=== PATIENT | male | born 1985 | race Caucasian/White ===

== ENCOUNTER 2017-06-01 04:52 | Emergency (ER) | payer SELFPAY ==
[2017-06-01] MEDS ORDERED: IPRATROPIUM/ALBUTEROL 3 ML DEYVIAL IH ONE (04:58)
[2017-06-01] MEDS ORDERED: IPRATROPIUM/ALBUTEROL 3 ML DEYVIAL ONE (04:58)
[2017-06-01 05:05] VITALS: BP 127/94; TEMP 97.3
--- NOTE | 2017-06-01 05:12 | EDPHY ---
H & P HPI/ROS: HPI The patient presents with shortness of breath which has been present intermittently for the last 1 month though became worse this morning. He has a history of asthma, last month he was treated with a prednisone burst with improvement in his symptoms, however over the last few weeks he has been getting worse. He reports shortness of breath with exertion and while lying in bed at night. He has not had a cough. He has not had a fever. He denies any sick contacts. REVIEW OF SYSTEMS Constitutional: No fever, no chills. Cardiovascular: No chest pain, no palpitations. Respiratory: No cough, positive for shortness of breath. Gastrointestinal: No abdominal pain, no vomiting. Genitourinary: No hematuria. Musculoskeletal: No back pain. Skin: No rashes. Neurological: No headache. PMHx: Asthma since childhood Soc Hx: Lives with roommates PHYSICAL General Appearance: Alert, no distress ENT, Mouth: Mucous membranes moist Respiratory: Breathing comfortably, there are mild wheezes throughout all lung carlin Neurological: A&O, moves all extremities Skin: Warm and dry, no rashes Psychiatric: Patient is oriented X 3, there is no agitation Source: Patient Exam Limitations: No limitations - Medical/Surgical History Hx Asthma: Yes Hx Chronic Respiratory Disease: No Hx Diabetes: No Hx Cardiac Disease: No Hx Renal Disease: No Hx Cirrhosis: No Hx Alcoholism: No Hx HIV/AIDS: No Hx Splenectomy or Spleen Trauma: No Other PMH: Asthma, gastric ulcer, left elbow, marijuana use, pancreatitis - Social History Smoking Status: Light smoker Constitutional: Initial Vital Signs Temperature (C) 36.3 C 06/01/17 05:03 Heart Rate 110 H 06/01/17 05:03 Respiratory Rate 30 H 06/01/17 05:03 Blood Pressure 127/94 H 06/01/17 05:03 O2 Sat (%) 92 06/01/17 05:03 O2 Delivery Mode Room Air Allergies/Adverse Reactions: No Known Allergies Allergy (Unverified 11/07/15 00:55) Home Medications: Medication Instructions Recorded Albuterol 06/01/17 predniSONE [Prednisone] 40 mg PO DAILY 4 Days tablet 06/01/17 Medical Decision Making Differential Diagnosis: 32-year-old male with history of asthma presents with shortness of breath for the last several days which became worse this morning when he was trying to sleep. He is out of his albuterol inhaler. On exam, he is well-appearing, slightly tachypneic, wheezes are present, oxygen saturation is normal. Differential diagnosis includes asthma exacerbation or viral URI. In the emergency department, patient was given a DuoNeb with near complete resolution of his symptoms. Lungs were clear. He was issued albuterol with spacer and given a dose of prednisone. He will complete a prednisone burst. He unfortunately does not have insurance currently and cannot afford an inhaled corticosteroid, however I have explained this may help control his symptoms. I will refer him to [facility]. - Data Points Medications Given: Discontinued Medications Albuterol/Ipratropium (Duoneb) 3 ml IH EDNOW ONE Stop: 06/01/17 04:59 Last Admin: 06/01/17 05:03 Dose: 3 ml Departure - Departure Disposition: Home, Routine, Self-Care Clinical Impression: Exacerbation of asthma Qualifiers: Asthma severity: moderate Asthma persistence: unspecified Qualified Code(s): J45.901 - Unspecified asthma with (acute) exacerbation Condition: Good Instructions: Asthma (ED) Referrals: [facility],. [Clinic] - As per Instructions Prescriptions: predniSONE [Prednisone] 40 mg PO DAILY 4 Days tablet
[2017-06-01] MEDS ORDERED: ALBUTEROL INH PREPACK MDI TAKEHOME ONE (05:38)
[2017-06-01] MEDS ORDERED: predniSONE 20 MG TAB ONE (05:44)
[2017-06-01 06:10] VITALS: PULSE 82; RESP 18; O2SAT 93
[2017-06-01] MEDS ORDERED: predniSONE 20 MG TAB PO SCH (08:00)
== END 2017-06-01 06:00 | disposition home or self-care (01) ==
DX: J45.901 Unspecified asthma with (acute) exacerbation (principal); F17.200 Nicotine dependence, unspecified, uncomplicated
CPT/HCPCS: J7512

== ENCOUNTER 2017-09-21 20:49 | Emergency (ER) | payer BC, OTHER ==
[2017-09-21] MEDS ORDERED: IPRATROPIUM/ALBUTEROL 3 ML DEYVIAL ONE (20:58)
[2017-09-21] MEDS ORDERED: IPRATROPIUM/ALBUTEROL 3 ML DEYVIAL IH ONE (21:09)
[2017-09-21] MEDS ORDERED: ALBUTEROL INH PREPACK MDI TAKEHOME ONE (21:34)
--- NOTE | 2017-09-21 21:34 | EDPHY ---
H & P Time Seen by Provider: 09/21/17 21:09 HPI/ROS: CHIEF COMPLAINT: Difficulty breathing HISTORY OF PRESENT ILLNESS: 32-year-old male presents to the emergency department by private vehicle with acute asthma exacerbation. The patient has a known history of asthma and allergies. He ran out of his albuterol inhaler about 2 weeks ago. He has been told in the past that he should be on cortical steroids including Advair although he was never able to afford it. He has a scheduled appointment with an asthma and transformation specialist in 1 week. He presents today because he had acute exacerbation of his asthma when he was at work trying to carry a heavy generator. He developed difficulty breathing. He states he tried a number of things on his own, however this was without relief. No fevers or chills. No URI symptoms. No cough. No abdominal pain. No vomiting. No headache. REVIEW OF SYSTEMS: Constitutional: No fever, no chills. Eyes: No double or blurry vision. ENT: No sore throat. Respiratory: Shortness of breath. No cough. Cardiac: No chest pain. Gastrointestinal: No abdominal pain, vomiting or diarrhea. Genitourinary: No dysuria. Musculoskeletal: No neck or back pain. Skin: No rashes. Neurological: No headache. Past Medical/Surgical History: Asthma, allergies Social History: Single, works at [employer] Smoking Status: Former smoker Physical Exam: General Appearance: Alert, no distress. Afebrile. No respiratory distress. 95% on room air. Eyes: Pupils equal and round. Extraocular motions are all intact. ENT: Mouth: Mucous membranes moist. Respiratory: No wheezing, rhonchi, or rales, lungs are clear to auscultation. Cardiovascular: Regular rate and rhythm. Gastrointestinal: Abdomen is soft and nontender, no masses, no rebound or guarding, bowel sounds normal. Neurological: Alert and oriented x 3, cranial nerves II through XII grossly intact Skin: Warm and dry, no rashes. Musculoskeletal: Nontender to palpate along the cervical, thoracic or lumbar spine. Neck is supple. Extremities: Full range of motion and no peripheral edema. Psychiatric: Patient is oriented X 3, there is no agitation. Constitutional: Initial Vital Signs Temperature (C) 37.1 C 09/21/17 20:52 Heart Rate 123 H 09/21/17 20:52 Respiratory Rate 20 09/21/17 20:52 Blood Pressure 122/82 H 09/21/17 20:52 O2 Sat (%) 95 09/21/17 20:52 O2 Delivery Mode Room Air Allergies/Adverse Reactions: No Known Allergies Allergy (Verified 09/21/17 20:54) Home Medications: Medication Instructions Recorded Albuterol 06/01/17 Medical Decision Making ED Course/Re-evaluation: 32-year-old male presents to the emergency department with acute accident this aspiration. The patient was given DuoNeb prior to my examination and was feeling much better. He felt like his symptoms of shortness of breath had completely resolved. O2 saturation remained in the mid 90s. Patient will be treated with albuterol inhaler. He declined cortical steroids at this time since he is going to follow up with an asthma and transformation specialist next week. I think this is reasonable. I do not think oral steroids such as prednisone are indicated at this time as he had great improvement just even after 1 nebulizer. He had no residual wheezing on examination. I do not think chest x-rays indicated. I doubt pneumonia. I doubt PE. He improved after 1 nebulizer treatment. Differential Diagnosis: Including but not limited to asthma exacerbation, bronchitis, pneumonia, influenza, pulmonary embolism, viral upper respiratory infection, anxiety - Data Points Medications Given: Discontinued Medications Albuterol/Ipratropium (Duoneb) 3 ml IH EDNOW ONE Stop: 09/21/17 21:10 Last Admin: 09/21/17 21:20 Dose: 3 ml Departure - Departure Disposition: Home, Routine, Self-Care Clinical Impression: Exacerbation of asthma Qualifiers: Asthma severity: unspecified severity Asthma persistence: unspecified Qualified Code(s): J45.901 - Unspecified asthma with (acute) exacerbation Condition: Good Instructions: Albuterol (By mouth), Asthma (ED) Additional Instructions: Albuterol inhale 2 puffs every 4 hours for one week then as needed. Return if you develop recurring difficulty breathing, if you develop chest pain , or if you feel worse in any way. Referrals: Cory Jimenez MD [place] [place] - As per Instructions (Primary care provider regional marketing manager)
[2017-09-21 21:46] VITALS: BP 124/80
== END 2017-09-21 21:48 | disposition home or self-care (01) ==
DX: J45.901 Unspecified asthma with (acute) exacerbation (principal); Z87.891 Personal history of nicotine dependence